=== PATIENT | female | born 1930 | race Caucasian/White ===

== ENCOUNTER → 2016-06-18 | Outpatient (CLI) ==
[2016-02-20 10:06] VITALS: BMI 26.1
== END ==
LOC: AMBL 14:50
PROVIDERS: ATTEND Emergency Medicine
DX: R53.1 Weakness (principal); C80.1 Malignant (primary) neoplasm, unspecified; R51 Headache; Z74.01 Bed confinement status; Z99.81 Dependence on supplemental oxygen